=== PATIENT | female | born 1945 | race Caucasian/White ===

== ENCOUNTER 2024-01-12 11:00 | Inpatient (IN) ==
[2024-01-06 15:01] LABS: Basophils # (Auto) 0.08 K/mcL (0.00-0.30); Eosinophils # (Auto) 0.24 K/mcL (0.00-0.70); Hematocrit 43.5 % (34.1-44.9); Hemoglobin 14.8 g/dL (11.2-15.7); Lymphocytes # (Auto) 1.73 K/mcL (1.50-4.80); Lymphocytes % (Auto) 21.9 % (15.5-49.0); Mean Cell Volume 88.6 fL (80.0-100.0); Mean Platelet Volume 9.4 fL (8.8-12.5); Monocytes # (Auto) 0.73 K/mcL (0.10-0.90); Monocytes % (Auto) 9.2 % (1.0-12.0); Neutrophils % (Auto) 64.6 % (38.0-78.0); Platelet Count 288 K/mcL (140-440); RBC 4.91 M/mcL (3.59-5.38); Red Cell Distribution Width 13.2 % (11.5-14.5); WBC 7.9 K/mcL (4.5-11.0)
[2024-01-06 15:09] LABS: Appearance,Urine Slightly Cloudy (Clear); Bacteria,Urine Few /hpf (0); Bilirubin,Urine Negative (Negative); Color,Urine Yellow; Culture Indicated,Urine No; Glucose,Urine (UA) Negative (Negative); Ketones,Urine Negative (Negative); Leukocyte Esterase,Urine Moderate /uL (Negative); Nitrate,Urine Negative (Negative); Protein,Urine Negative (Negative); Specific Gravity,Urine 1.025 (1.000-1.035); Urine Blood Small ery/mcL (Negative); Urine RBC 1 /hpf (0-3); Urine Squamous Epithelial Cell 6 /hpf (0-4); Urine WBC 100 /hpf (0-4); Urobilinogen,Urine Normal
[2024-01-06 15:22] LABS: ALT/SGPT < 5 U/L (<40); AST/SGOT 18 U/L (<32); Albumin 4.3 gm/dL (3.2-5.2); Albumin/Globulin Ratio 1.5 (1.0-2.3); Alkaline Phosphatase 76 U/L (39-117); Bilirubin,Total 0.4 mg/dL (0.1-1.0); Blood Urea Nitrogen 17 mg/dL (8-23); Calcium 9.6 mg/dL (8.6-10.4); Carbon Dioxide 23 mmol/L (22-30); Chloride 103 mmol/L (96-108); Globulin 2.9 gm/dL (2.2-3.7); Glomerular Filtration Rate 69; Glucose 94 mg/dL (70-105); Sodium 140 mmol/L (133-145)
[2024-01-06 15:41] LABS: Prothrombin Time 13.5 sec (11.9-14.5)
[2024-01-06 18:34] LABS: Estimated Average Glucose(eAG) 134 mg/dL; Hemoglobin A1C 6.3 % Hgb (4.0-6.0)
[2024-01-12] MEDS ORDERED: ROPIVACAINE HCL/PF 30 ML VIAL IJ ONE (13:57)
[2024-01-12] MEDS ORDERED: TRANEXAMIC ACID 1,000 MG/10 ML VIAL ONE (13:57)
[2024-01-12] MEDS ORDERED: MAGNESIUM SULFATE 2 GM/50 ML BAG IV ONE (13:57)
[2024-01-12] MEDS ORDERED: DEXAMETHASONE 10 MG/ML VIAL ONE (13:57)
[2024-01-12] MEDS ORDERED: LIDOCAINE 2% PF 5 ML VIAL ONE (13:57)
[2024-01-12] MEDS ORDERED: KETAMINE 50 MG/ML Syringe IV ONE (13:57)
[2024-01-12] MEDS ORDERED: ONDANSETRON 4 MG/2 ML VIAL ONE (13:57)
[2024-01-12] MEDS ORDERED: PROPOFOL 200 MG/20 ML VIAL IV ONE (13:57)
[2024-01-12] MEDS: ceFAZolin 2 GM in DEXTROSE 5% IN WATER 50 ML IV SCH (14:32)
[2024-01-12] MEDS ORDERED: HYDROmorphone 1 MG/ML SYRINGE ONE (15:07)
[2024-01-12] MEDS ORDERED: LACTATED RINGERS 250 ML IV PRN (15:56)
[2024-01-12] MEDS ORDERED: diphenhydrAMINE 50 MG/ML VIAL IV PRN (15:56)
[2024-01-12] MEDS ORDERED: IPRATROPIUM/ALBUTEROL 3 ML AMPUL.NEB NEB PRN (15:56)
[2024-01-12] MEDS ORDERED: NALOXONE HCL 0.4 MG/ML VIAL IV PRN (15:56)
[2024-01-12] MEDS ORDERED: MEPERIDINE 25 MG/ML VIAL IV PRN (15:56)
[2024-01-12] MEDS ORDERED: ONDANSETRON 4 MG/2 ML VIAL IV PRN (15:56)
[2024-01-12] MEDS: 0.9 % SODIUM CHLORIDE 9 ML, ROPIVACAINE HCL/PF 49.5 ML, EPINEPHrine 0.5 MG IJ SCH (16:00)
[2024-01-12] MEDS ORDERED: MAGNESIUM HYDROXIDE 30 ML ORAL.SUSP PO PRN (16:12)
[2024-01-12] MEDS ORDERED: HYDROCORTISONE 2.5% TOPICAL PRN (16:15)
[2024-01-12] MEDS ORDERED: DICLOFENAC SODIUM 3% TOPICAL PRN (16:22)
[2024-01-12] MEDS: fentaNYL 100 MCG/2 ML VIAL IV PRN (16:56)
[2024-01-12] MEDS: TRANEXAMIC ACID 1,000 MG/10 ML VIAL IV ONE (17:14)
[2024-01-12] MEDS: METHOCARBAMOL 1,000 MG/10 ML VIAL IV PRN (17:14)
[2024-01-12] MEDS: HYDROmorphone 1 MG/ML SYRINGE IV PRN (17:18)
[2024-01-12] MEDS: ACETAMINOPHEN 1,000 MG/100 ML BAG IV ONE (17:44)
[2024-01-12] MEDS: LACTATED RINGERS 1,000 ML IV SCH (18:12)
[2024-01-12] MEDS: ONDANSETRON 4 MG/2 ML VIAL IV PRN (19:15)
[2024-01-12] MEDS: KETOROLAC 15 MG/ML VIAL IV SCH (19:30)
[2024-01-12] MEDS: oxyCODONE/APAP 5/325MG TABLET PO PRN (20:07)
[2024-01-12] MEDS: 0.9 % SODIUM CHLORIDE 10 ML SYRINGE IV SCH (22:00)
[2024-01-12] MEDS: CELECOXIB 200 MG CAPSULE PO SCH (22:49)
[2024-01-12] MEDS: oxyCODONE 10 MG TAB.ER.12H PO SCH (22:49)
[2024-01-12] MEDS: GABAPENTIN 100 MG CAPSULE PO SCH ×2 (22:49→23:19)
[2024-01-12] MEDS: ACETAMINOPHEN 500 MG TABLET PO SCH (22:50)
[2024-01-12] MEDS: HYDROCHLOROTHIAZIDE 25 MG TABLET PO ONE (23:19)
[2024-01-12] MEDS: SENNOSIDES 1 TABLET PO SCH (23:20)
[2024-01-12] MEDS: ceFAZolin 1 GM VIAL IV SCH (23:20)
[2024-01-12] MEDS: ASPIRIN 81 MG TAB.CHEW PO SCH (23:20)
[2024-01-12] MEDS: 0.45 % SODIUM CHLORIDE 1,000 ML IV SCH (23:28)
[2024-01-13] MEDS: ACETAMINOPHEN 325 MG TABLET PO PRN (07:18)
[2024-01-13] MEDS: LEVOTHYROXINE 75 MCG TABLET PO SCH (07:18)
[2024-01-13] MEDS: FOLIC ACID 1 MG TABLET PO SCH (08:14)
[2024-01-13] MEDS: HYDROCHLOROTHIAZIDE 12.5 MG CAPSULE PO SCH (08:14)
[2024-01-13] MEDS: VITAMIN D3 25 MCG TABLET PO SCH (08:14)
[2024-01-13] MEDS ORDERED: KRILL OIL 1000 MG PO SCH (09:00)
[2024-01-13] MEDS ORDERED: LUTEIN 40 MG PO SCH (09:00)
[2024-01-13] MEDS ORDERED: POTASSIUM GLUCONATE PO SCH (09:00)
[2024-01-13] MEDS ORDERED: MAGNESIUM MALATE PO SCH (09:00)
[2024-01-13 12:52] VITALS: TEMP 97.9; O2SAT 96
== END 2024-01-13 12:25 | disposition home or self-care (01) | DRG 468 ==
LOC: MEDSUR 11:15
PROVIDERS: ADMIT Orthopaedic Surgery; ATTEND Orthopaedic Surgery